=== PATIENT | female | born 1995 | race Caucasian/White ===

== ENCOUNTER 2018-11-16 21:00 | Emergency (ER) | payer OTHER ==
[~2018-11-16] VITALS: Ht 160 cm; Wt 61.2 kg
[~2018-11-16 21:00] MED LIST: BACTRIM DS TAB1 EACH PO
[2018-11-16 21:10] VITALS: BP 119/69
[2018-11-16 21:50] LABS: ABSOLUTE NEUTROPHILS 10.6 thou/uL (1.4-8.2); BASOPHILS 0.5 % (0.0-2.0); EOSINOPHILS 3.4 % (0.0-3.0); HEMATOCRIT 39.4 % (37.0-47.0); HEMOGLOBIN 13.6 gm/dL (12.0-15.0); LYMPHOCYTES 21.3 % (24.0-44.0); MCH 29.9 pg (26.0-34.0); MCHC 34.5 g/dL (28.0-37.0); MCV 86.7 fL (80.0-100.0); MONOCYTES 8.1 % (1.0-8.0); PLATELET COUNT 230 thou/uL (150-400); POLYS 66.7 % (36.0-66.0); RBC 4.54 mil/uL (4.20-5.00); RDW 13.3 % (10.5-14.5); WBC 15.8 thou/uL (4.0-11.0)
[2018-11-16 21:58] LABS: CALCIUM 9.2 mg/dL (8.5-10.1); CREATININE 0.9 mg/dL (0.6-1.0); POTASSIUM 3.7 mmol/L (3.5-5.1)
[2018-11-16 22:05] LABS: ALBUMIN 3.9 g/dL (3.4-5.0); TOTAL BILIRUBIN 0.4 mg/dL (<0.1-1.0)
[2018-11-17] MEDS ORDERED: ROBAXIN 750 MG750 MG PO (00:55)
[2018-11-17] MEDS ORDERED: NAPROSYN500 MG PO (00:55)
== END 2018-11-17 00:57 | disposition home or self-care (01) ==
LOC: ER 21:00
PROVIDERS: Nurse Practitioner
DX: M54.2 Cervicalgia (principal); R10.30 Lower abdominal pain, unspecified; R10.10 Upper abdominal pain, unspecified; V89.2XXA Person injured in unspecified motor-vehicle accident, traffic, initial encounter; Y93.89 Activity, other specified; Y92.89 Other specified places as the place of occurrence of the external cause; Y99.8 Other external cause status